=== PATIENT | female | born 1995 ===

== ENCOUNTER 2017-08-15 00:30 | Emergency (ER) | payer OTHER ==
[2017-08-15 00:48] VITALS: BMI 30.2
[2017-08-15 00:53] VITALS: TEMP 97.5; O2SAT 98
[2017-08-15] MEDS ORDERED: Sodium Chloride 0.9% 1,000 ML IV STA (01:03)
[2017-08-15 02:12] LABS: BASO % 0.3 % (0.0-2.0); EOS # 0.1 K/uL (0.0-0.7); EOS % 0.8 % (0.0-4.0); HEMOGLOBIN 11.6 g/dL (12.0-16.0); LYMPH # 2.4 K/uL (1.0-4.3); LYMPH % 19.1 % (20.0-40.0); MEAN CELL VOLUME 87.4 fl (81.0-99.0); MEAN CORPUSCULAR HEMOGLOBIN 28.4 pg (27.0-31.0); MEAN CORPUSCULAR HGB CONC 32.5 g/dL (33.0-37.0); MEAN PLATELET VOLUME 9.2 fl (7.2-11.7); MONO # 0.9 K/uL (0.0-0.8); MONO % 6.8 % (0.0-10.0); NEUT # 9.2 K/uL (1.8-7.0); NRBC % 0.1 % (0.0-0.0); RBC 4.1 Mil/uL (3.80-5.20); RED CELL DISTRIBUTION WIDTH 13.3 % (11.5-14.5); WHITE BLOOD COUNT 12.6 K/uL (4.8-10.8)
--- NOTE | 2017-08-15 02:25 | ED PDOC ---
Syncope/Near Syncope/Dizziness Time Seen by Provider: 08/15/17 00:55 Chief Complaint (Nursing): Syncope Chief Complaint (Provider): syncope History Per: Patient History/Exam Limitations: no limitations Onset/Duration Of Symptoms: Hrs Current Symptoms Are (Timing): Better Activity At Onset Of Symptoms: Standing (in shower) Associated Symptoms Preceding Syncopal Episode: Lightheadedness Seizure Or Post-ictal Symptoms: None Fall Associated With With Symptoms: No Injury As Result Of Fall Additional History Per: Patient Additional Complaint(s): 21 y/o female presents for evaluation of syncopal episode prior to arrival. Patient states she has been nauseous the last 2 days with two episodes of vomiting; tonight while showering she felt light headed and fainted, but states fiance was there to catch her fall. Patient admits to feeling nauseous now. Denies fever, headache, dizziness, extremity numbness/weakness, neck pain, chest pain, shortness of breath, palpitations, abdominal pain, recent travel, sick contacts. Past Medical History Reviewed: Historical Data, Nursing Documentation, Vital Signs Vital Signs: Last Vital Signs Temp 97.5 F L 08/15/17 00:49 Pulse 79 08/15/17 00:49 Resp 18 08/15/17 00:49 BP 95/55 L 08/15/17 00:49 Pulse Ox 98 08/15/17 00:49 - Medical History PMH: No Chronic Diseases - Surgical History Surgical History: No Surg Hx - Family History Family History: States: No Known Family Hx - Living Arrangements Living Arrangements: With Family - Home Medications Home Medications: Ambulatory Orders Medication Instructions Recorded Vit#96/Ferrous Fum/FA 1 tab PO DAILY 11/30/15 [ Tablet] Ondansetron ODT [Zofran ODT] 4 mg PO Q8 PRN #10 odt 08/15/17 - Allergies Allergies/Adverse Reactions: Allergies Allergy/AdvReac Type Severity Reaction Status Date / Time No Known Allergies Allergy Verified 08/15/17 00:48 Review of Systems ROS Statement: Except As Marked, All Systems Reviewed And Found Negative Gastrointestinal: Positive for: Nausea Physical Exam - Reviewed Nursing Documentation Reviewed: Yes Vital Signs Reviewed: Yes - Physical Exam Appears: Positive for: Well, Non-toxic, No Acute Distress Head Exam: Positive for: ATRAUMATIC, NORMAL INSPECTION, NORMOCEPHALIC Skin: Positive for: Normal Color Eye Exam: Positive for: Normal appearance, EOMI, PERRL ENT: Positive for: Normal ENT Inspection Cardiovascular/Chest: Positive for: Regular Rate, Rhythm Respiratory: Positive for: Normal Breath Sounds Gastrointestinal/Abdominal: Positive for: Normal Exam Back: Positive for: Normal Inspection Extremity: Positive for: Normal ROM Neurologic/Psych: Positive for: Alert, Oriented - Laboratory Results Result Diagrams: 08/15/17 02:05 08/15/17 02:05 - ECG O2 Sat by Pulse Oximetry: 98 - Progress ED Course And Treament: labs, ekg, urine, IV fluids, IV zofran On re-eval, patient states she is feeling better. Patient educated on findings, discharged with rx Zofran Encouraged fluids. Follow up PMD 2-3 days. Return precautions given. Disposition - Clinical Impression Clinical Impression: Syncope, Nausea and vomiting - Patient ED Disposition Is Patient to be Admitted: No Counseled Patient/Family Regarding: Studies Performed, Diagnosis, Need For Followup, Rx Given - Disposition Referrals: [facility] [Outside] Disposition: Routine/Home Disposition Time: 03:43 Condition: IMPROVED Prescriptions: Ondansetron ODT [Zofran ODT] 4 mg PO Q8 PRN #10 odt PRN Reason: Nausea/Vomiting Instructions: Syncope (ED), Acute Nausea and Vomiting (ED) Forms: [employer] ([place])
[2017-08-15 02:47] LABS: ALB/GLOB RATIO 1.4 (1.0-2.1); ALBUMIN 4.4 g/dL (3.5-5.0); ALT/SGPT 22 U/L (9-52); AST/SGOT 17 U/L (14-36); BLOOD UREA NITROGEN 11 mg/dl (7-17); CALCIUM 9.3 mg/dL (8.4-10.2); GFR AFRICAN-AMERICAN > 60; GFR NON-AFRICAN AMERICAN > 60; LIPASE 103 U/L (23-300)
[2017-08-15 03:10] VITALS: BP 98/58; PULSE 68; RESP 16
--- NOTE | 2017-08-15 10:44 | CARD ---
APPROVED REPORT EKG Measurement Heart [id number] <Conclusion> Normal sinus rhythm Normal ECG
== END 2017-08-15 03:59 | disposition home or self-care (01) ==
LOC: H.ER 00:30
DX: R55 Syncope and collapse (principal); R11.2 Nausea with vomiting, unspecified
CPT/HCPCS: 80053; 81025; 83690; 85025; 87804; 93005; 96360; 99284; J2405; J7040